=== PATIENT | male | born 1990 | race Caucasian/White ===

== ENCOUNTER 2018-04-08 11:32 | Emergency (ER) | payer OTHER ==
[~2018-04-08] VITALS: Ht 177.8 cm; Wt 83.6 kg
[2018-04-08 11:35] VITALS: TEMP 36.7; Ht 177.8 cm; Wt 83.6 kg
[2018-04-08] MEDS ORDERED: SODIUM CHLORIDE 0.9% 1000ML 1,000 ML IV STA (11:57)
[2018-04-08 12:28] LABS: BASO % 0.3 %; BASO ABS # 0.02 K/uL (0-0.2); EOS % 4.3 %; HEMATOCRIT 49.4 % (42-52); IG# 0.02 K/uL (0.00-0.02); LYMPH % 29.7 %; LYMPH ABS # 2.05 K/uL (1.2-3.4); MEAN CELL VOLUME 85.6 fL (80-100); MEAN CORPUSCULAR HEMOGLOBIN 29.5 pg (25-34); MEAN CORPUSCULAR HGB CONC 34.4 g/dl (32-36); MONO % 9.6 %; MONO ABS # 0.66 K/uL (0.11-0.59); NEUT % 55.8 %; NEUT ABS # 3.86 K/uL (1.4-6.5); PLATELET COUNT 168 K/uL (130-400); RED CELL DISTRIBUTION WIDTH CV 13.4 % (11.5-14.5); RED CELL DISTRIBUTION WIDTH SD 41.3 fL (36.4-46.3); WHITE BLOOD COUNT 6.91 K/uL (4.8-10.8)
[2018-04-08 12:47] LABS: CALCIUM 9.1 mg/dl (8.5-10.1); CREATININE 0.98 mg/dl (0.60-1.40); POTASSIUM 3.9 mmol/L (3.5-5.1)
[2018-04-08] MEDS ORDERED: OPTIRAY 320 IV PRN (13:00)
--- NOTE | 2018-04-08 13:21 | DIAGNOSTIC IMAGING REPORT ---
CT ABD/PELVIS IV CONTRAST ONLY CLINICAL HISTORY: Left-sided abdominal pain COMPARISON STUDY: None. TECHNIQUE: Following the IV administration of 93 mL of Optiray-320, CT scan of the abdomen and pelvis was performed from the lung bases to the proximal femurs. Images are reviewed in the axial, sagittal, and coronal planes. IV contrast was administered without complication. A dose lowering technique was utilized adhering to the principles of ALARA. CT DOSE: 374.07 mGy.cm FINDINGS: Lower chest: The heart is normal in size and configuration, without pericardial effusion. The lung bases and pleural spaces are clear. Liver: The contrast-enhanced liver is normal in size, contour, and attenuation. There is no intrahepatic biliary ductal dilatation. The hepatic veins and portal veins are patent. Gallbladder: Unremarkable. Spleen: Normal in size and attenuation. Pancreas: Unremarkable. Adrenal glands: Unremarkable. Kidneys: There is symmetric renal cortical enhancement. The kidneys are normal in size without hydronephrosis. Bowel: There are no transition zones indicate bowel obstruction. The appendix appears normal. There is no acute diverticulitis. There is scattered stool throughout the colon. Peritoneum: There is no intraperitoneal free air or abdominal ascites. Vasculature: The abdominal aorta is normal in course and caliber. Adenopathy: None. Pelvic viscera: The bladder, and pelvic viscera are unremarkable. Skeletal structures: No destructive osseous lesions are seen. IMPRESSION: 1. No acute intra-abdominal or pelvic findings 2. No evidence of bowel obstruction. No evidence of free air 3. Normal appendix 4. No evidence of acute diverticulitis Electronically signed by: Kiko Armando M.D. 04/08/2018 1:20 PM Dictated Date/Time: 04/08/2018 1:16 PM
--- NOTE | 2018-04-08 13:35 | EMERGENCY ROOM VISIT NOTE ---
History First contact with patient: 11:42 Chief Complaint: ABDOMINAL PAIN Stated Complaint: LOWER LEFT ABD PAIN Nursing Triage Summary: Patient c/o of lower left abdominal pain since yesterday and nausea last week. History of Present Illness Patient is a healthy 27-year-old male who presents the emergency department accompanied by his for evaluation of left mid abdominal pain. His symptoms started about 24 hours ago. He had noted some intermittent pain in the same region on and off over the last couple of weeks but states that the pain would only last him a few minutes. Since yesterday afternoon the pain has been constant. He also reports some slight nausea. Pain is mostly positional, he feels better when he is curled up and worse when he tries to stand upright. He has tried resting and increasing his fluid intake, but has not taken any medications for his symptoms. He denies any vomiting. No diarrhea, constipation or other changes in his stool. He denies any melena or hematochezia. No urinary symptoms. No penile or testicular pain or scrotal redness or swelling. He has never had symptoms similar to this previously. He is able to eat and drink normally, he states that he ate [employer] prior to coming into the emergency department. He denies any unusual food or water consumption, foreign travel, recent antibiotic use or sick contacts. 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 He rates his discomfort a 5/10. Review of Systems Review of systems as per HPI. All other systems reviewed were negative. 10 systems reviewed. Past Medical/Surgical History Medical Problems: (1) No Known Active Medical Problems Electronic medical records are reviewed and summarized as above/below. See Problem List. Social History Smoking Status: Former Smoker Alcohol Use: none Drug Use: none Marital Status: Occupation Status: employed Current/Historical Medications Miscellaneous Medications None (Patient States No Home Meds) Physical Exam Vital Signs Date Time Temp Pulse Resp B/P (MAP) Pulse Ox O2 Delivery O2 Flow Rate FiO2 04/08/18 13:54 74 16 130/83 98 04/08/18 11:35 36.7 89 18 145/81 99 Room Air Physical Exam CONSTITUTIONAL: Patient is a well-appearing 27-year-old male who is awake and alert and in no acute distress. EYES: Pupils equal, round, reactive to light and accommodation. EOMs intact without nystagmus. Sclera are anicteric. ENT: Tympanic membranes intact, with normal landmarks. External canals are clear. Oral and nasopharynx are clear. Mucous membranes are moist, no lesions , tongue and gums appear normal. CARDIOVASCULAR: Regular rate and rhythm, with normal S1 and S2, no murmur or gallop or rub is heard. No carotid bruits auscultated. No JVD. Peripheral pulses easily palpable. RESPIRATORY: Breath sounds equal and clear to auscultation without wheezes, rales, or rhonchi heard. Full and equal chest expansion without accessory muscle use or retractions. ABDOMEN: Bowel sounds are present. Abdomen is soft, nondistended, tender to percussion in the left mid abdomen. He is tender to palpation in the left lower quadrant in the left mid abdomen, without guarding, positive rebound tenderness. There is no pain in the right lower quadrant over McBurney's point. No CVA tenderness. INTEGUMENTARY: No lesions or rash, normal skin turgor. LYMPH: No lymphadenopathy. Medical Decision & Procedures ER Provider Diagnostic Interpretation: CT ABD/PELVIS IV CONTRAST ONLY CLINICAL HISTORY: Left-sided abdominal pain COMPARISON STUDY: None. TECHNIQUE: Following the IV administration of 93 mL of Optiray-320, CT scan of the abdomen and pelvis was performed from the lung bases to the proximal femurs. Images are reviewed in the axial, sagittal, and coronal planes. IV contrast was administered without complication. A dose lowering technique was utilized adhering to the principles of ALARA. CT DOSE: 374.07 mGy.cm FINDINGS: Lower chest: The heart is normal in size and configuration, without pericardial effusion. The lung bases and pleural spaces are clear. Liver: The contrast-enhanced liver is normal in size, contour, and attenuation. There is no intrahepatic biliary ductal dilatation. The hepatic veins and portal veins are patent. Gallbladder: Unremarkable. Spleen: Normal in size and attenuation. Pancreas: Unremarkable. Adrenal glands: Unremarkable. Kidneys: There is symmetric renal cortical enhancement. The kidneys are normal in size without hydronephrosis. Bowel: There are no transition zones indicate bowel obstruction. The appendix appears normal. There is no acute diverticulitis. There is scattered stool throughout the colon. Peritoneum: There is no intraperitoneal free air or abdominal ascites. Vasculature: The abdominal aorta is normal in course and caliber. Adenopathy: None. Pelvic viscera: The bladder, and pelvic viscera are unremarkable. Skeletal structures: No destructive osseous lesions are seen. IMPRESSION: 1. No acute intra-abdominal or pelvic findings 2. No evidence of bowel obstruction. No evidence of free air 3. Normal appendix 4. No evidence of acute diverticulitis Laboratory Results 04/08/18 12:21 Red Blood Count 5.77, Mean Corpuscular Volume 85.6, Mean Corpuscular Hemoglobin 29.5, Mean Corpuscular Hemoglobin Concent 34.4, Mean Platelet Volume 10.0, Neutrophils (%) (Auto) 55.8, Lymphocytes (%) (Auto) 29.7, Monocytes (%) (Auto) 9.6, Eosinophils (%) (Auto) 4.3, Basophils (%) (Auto) 0.3, Neutrophils # (Auto) 3.86, Lymphocytes # (Auto) 2.05, Monocytes # (Auto) 0.66, Eosinophils # (Auto) 0.30, Basophils # (Auto) 0.02 04/08/18 12:21 Test 04/08/18 12:21 04/08/18 12:30 White Blood Count 6.91 K/uL (4.8-10.8) Red Blood Count 5.77 M/uL (4.7-6.1) Hemoglobin 17.0 g/dL (14.0-18.0) Hematocrit 49.4 % (42-52) Mean Corpuscular Volume 85.6 fL (80-100) Mean Corpuscular Hemoglobin 29.5 pg (25-34) Mean Corpuscular Hemoglobin Concent 34.4 g/dl (32-36) Platelet Count 168 K/uL (130-400) Mean Platelet Volume 10.0 fL (7.4-10.4) Neutrophils (%) (Auto) 55.8 % Lymphocytes (%) (Auto) 29.7 % Monocytes (%) (Auto) 9.6 % Eosinophils (%) (Auto) 4.3 % Basophils (%) (Auto) 0.3 % Neutrophils # (Auto) 3.86 K/uL (1.4-6.5) Lymphocytes # (Auto) 2.05 K/uL (1.2-3.4) Monocytes # (Auto) 0.66 K/uL (0.11-0.59) Eosinophils # (Auto) 0.30 K/uL (0-0.5) Basophils # (Auto) 0.02 K/uL (0-0.2) RDW Standard Deviation 41.3 fL (36.4-46.3) RDW Coefficient of Variation 13.4 % (11.5-14.5) Immature Granulocyte % (Auto) 0.3 % Immature Granulocyte # (Auto) 0.02 K/uL (0.00-0.02) Anion Gap 7.0 mmol/L (3-11) Est Creatinine Clear Calc Drug Dose 119.0 ml/min Estimated GFR () 123.7 Estimated GFR (Non- 106.7 BUN/Creatinine Ratio 11.1 (10-20) Calcium Level 9.1 mg/dl (8.5-10.1) Urine Color DK YELLOW Urine Appearance CLEAR (CLEAR) Urine pH 5.0 (4.5-7.5) Urine Specific [place] 1.033 (1.000-1.030) Urine Protein NEG (NEG) Urine Glucose (UA) NEG (NEG) Urine Ketones NEG (NEG) Urine Occult Blood NEG (NEG) Urine Nitrite NEG (NEG) Urine Bilirubin NEG (NEG) Urine Urobilinogen NEG (NEG) Urine Leukocyte Esterase NEG (NEG) Medications Administered Medications (Trade) Dose Ordered Sig/Feliz Route Start Time Stop Time Status Last Admin Dose Admin Sodium Chloride 1,000 ml @ 999 mls/hr Q1H1M STAT IV 04/08/18 11:57 04/08/18 12:57 DC 04/08/18 11:57 999 MLS/HR ED Course The patient was seen and assessed as above. Old records were reviewed. He presents the emergency department for evaluation of left-sided abdominal he has a benign abdominal exam. He just ate [employer] prior to arriving in the ED. IV lock was initiated. He was hydrated with normal saline solution. CBC with differential, BMP and urinalysis were obtained. Laboratory studies are unremarkable, no leukocytosis, left shift or bandemia. No anemia. Electrolytes are within normal limits. Renal functions are normal. Urinalysis is completely clear. Given the location of his pain, CT scan of the abdomen and pelvis with IV contrast was ordered, and was negative for any acute findings in the abdomen or the pelvis. No bowel obstruction, free air or evidence for diverticulitis. Appendix was visualized and was normal. Laboratory and diagnostic imaging studies were reviewed with the patient and his spouse. Differential diagnoses entertained included musculoskeletal pain, constipation, gastric distention, diverticulitis, UTI, pyelonephritis, renal colic, hernia, shingles, IBS, IBD, among others. The patient was reassured. He was encouraged to follow-up with his primary care provider if his symptoms are not improving. He was discharged home with his spouse in good condition. Vital signs are stable at discharge. He rated his pain a 0/10. Medical Decision See ED Course. Medication Reconcilliation Current Medication List: was personally reviewed by me Blood Pressure Screening Patient's blood pressure: Elevated blood pressure Blood pressure disposition: Elevated BP felt to be situational, Did not require urgent referral Impression Primary Impression: Left sided abdominal pain Departure Information Referrals No Doctor, Assigned (PCP) Patient Instructions [facility] Additional Instructions Ibuprofen(Motrin, Advil) may be used for fever or pain. Use 600mg every six hours as needed. Take with food. Avoid using more than 2400mg in a 24 hour period. Do not use 2400mg per day for more than three consecutive days without physician direction. Prolonged inappropriate use can lead to stomach upset or ulcers. This is available over the counter and typically comes in 200mg tablets. (AND/OR) Acetaminophen(Tylenol) may be used for fever or pain. Use 1000mg every eight hours as needed. Avoid using more than 3000mg in a 24 hour period. This is available over the counter. Rest and drink plenty of fluids as tolerated. Slow sips of water or sports drinks are recommended instead of large amounts all at once. Continue current medications. Once your stomach is settled start with a clear liquid diet (jello, soup broth, etc.) and then advance as tolerated. You should avoid full, heavy meals for about 24 hrs from the time your symptoms resolved. Return to the ER immediately for worsening or persistent abdominal pain, vomiting, fevers, chest pains, difficulty breathing, black or bloody stools, worsening of your condition, or as needed. Follow up with your primary physician in 1-2 days for a recheck of your current condition.
[2018-04-08 13:54] VITALS: BP 130/83; PULSE 74; O2SAT 98
== END 2018-04-08 13:55 | disposition home or self-care (01) ==
LOC: C.EDB 11:34 → C.EDC 13:55
DX: R10.13 Epigastric pain (principal); R10.32 Left lower quadrant pain; R11.0 Nausea; R03.0 Elevated blood-pressure reading, without diagnosis of hypertension; Z87.891 Personal history of nicotine dependence